=== PATIENT | male | born 1975 | race Caucasian/White ===

== ENCOUNTER 2020-08-06 09:10 | Day surgery (SDC) | payer OTHER, SELFPAY ==
[~2020-08-06] VITALS: Ht 172.7 cm; Wt 106.6 kg
[2020-08-06] MEDS ORDERED: fentaNYL citrate 0.05 MG/ML VIAL ONE (10:28)
[2020-08-06] MEDS ORDERED: LIDOCAINE 2% 100 MG/5 ML UJET TP ONE ×2 (10:28→12:05)
[2020-08-06] MEDS ORDERED: fentaNYL citrate 0.05 MG/ML VIAL IVP ONE (12:05)
== END 2020-08-06 11:45 | disposition home or self-care (01) ==
LOC: MDS 09:10 → MFCC 09:24 → MDS 11:45
PROVIDERS: ATTEND Internal Medicine Gastroenterology
DX: K62.89 Other specified diseases of anus and rectum (principal); K64.8 Other hemorrhoids; K60.3 Anal fistula; Z79.899 Other long term (current) drug therapy
CPT/HCPCS: 45330; 87426; J3010